=== PATIENT | male | born 1965 | race Caucasian/White ===

== ENCOUNTER 2017-08-30 18:57 | Emergency (ER) | payer OTHER ==
[2017-08-30] MEDS ORDERED: ACETAMINOPHEN 500 MG TAB PO ONE (19:43)
[2017-08-30] MEDS ORDERED: IBUPROFEN 600 MG TAB PO ONE (19:43)
--- NOTE | 2017-08-30 20:15 | EDPHY ---
H & P Stated Complaint: R ankle injury - Personal History Current Tetanus/Diphtheria Vaccine: Yes Current Tetanus Diphtheria and Acellular Pertussis (TDAP): Yes - Medical/Surgical History Hx Asthma: No Hx Chronic Respiratory Disease: No Hx Diabetes: No Hx Cardiac Disease: No Hx Renal Disease: No Hx Cirrhosis: No Hx Alcoholism: No Hx HIV/AIDS: No Hx Splenectomy or Spleen Trauma: No Other PMH: HTN, hiatal hernia - Social History Smoking Status: Never smoked Time Seen by Provider: 08/30/17 19:30 HPI/ROS: Chief complaint: Right ankle injury History of present illness: This is a 52-year-old male who presents to the emergency department for a right ankle injury. He slipped and fell, twisting it. Since then he has had pain and swelling. Difficulty ambulating. No report of open wounds. No abnormal coolness or paresthesias in the foot. No other trauma reported. (Robin Escalante) - Physical Exam Exam: General: Alert, nontoxic Skin: No open wounds to the right lower extremity. Musculoskeletal: Mild edema to the lateral aspect of the ankle. This area is tender to palpation. He is having difficulty moving the ankle. The Achilles is intact. The knee, proximal lower leg and foot are nontender. Vascular: DP and PT pulses 2+. Neurologic: Sensation intact throughout the right leg. (Robin Escalante) Constitutional: Initial Vital Signs Temperature (C) 36.4 C 08/30/17 19:11 Heart Rate 74 08/30/17 19:11 Respiratory Rate 16 08/30/17 19:11 Blood Pressure 138/97 H 08/30/17 19:11 O2 Sat (%) 96 08/30/17 19:11 O2 Delivery Mode Room Air Allergies/Adverse Reactions: No Known Allergies Allergy (Verified 03/13/12 19:04) Home Medications: Medication Instructions Recorded Lisinopril 08/30/17 Medical Decision Making - Diagnostics Imaging: I viewed and interpreted images myself Procedures: Procedure: Splint placement. A posterior short-leg splint was applied. After application of the splint I returned and re-examined the patient. The splint was adequately immobilizing the joint and distal to the splint the patient's circulation and sensation was intact. (Robin Escalante) ED Course/Re-evaluation: Patient seen under the supervision of my secondary supervising physician Dr. Karthik Anna. Patient presents to the emergency department for evaluation of a right ankle injury. X-ray confirms a fracture. This appears to be closed. The right lower extremity is neurovascularly intact. By history and physical exam no evidence of trauma to other parts of the body. The ankle is splinted. Patient is discharged home. He is referred to Orthopedics for recheck. Return precautions are given. (Robin Escalante) I did not see this while he was in the emergency department. However his care was discussed with the PA while the patient was in the department. I agree with treatment plan and management (WilfridoaKrthik Niranjan) Differential Diagnosis: Included but not limited to contusion, sprain or strain, bony fracture, joint dislocation (Robin Escalante) - Data Points Medications Given: Discontinued Medications Acetaminophen (Tylenol) 1,000 mg PO EDNOW ONE Stop: 08/30/17 19:44 Last Admin: 08/30/17 20:00 Dose: 1,000 mg Ibuprofen (Motrin) 600 mg PO EDNOW ONE Stop: 08/30/17 19:44 Last Admin: 08/30/17 20:00 Dose: 600 mg Departure - Departure Disposition: Home, Routine, Self-Care Clinical Impression: Right fibular fracture Qualifiers: Encounter type: initial encounter Fibula location: distal Fracture type: closed Fracture morphology: unspecified fracture morphology Qualified Code(s): S82.831A - Other fracture of upper and lower end of right fibula, initial encounter for closed fracture Condition: Good Instructions: Leg Fracture (ED) Additional Instructions: Follow-up with orthopedics for continued evaluation and care Use ibuprofen 600 mg every 6 hr for pain In addition you can use Tylenol 650 mg every 6 hr for pain Ice the injury, 20 min on, at least 3 times daily for the next 3 days Elevate the injury as much as possible If symptoms worsen or new symptoms develop return to the emergency room for recheck Referrals: Kolton Perkins MD [Primary Care Provider] - As per Instructions Shan Faye MD [Medical Doctor] - As per Instructions
[2017-08-30 20:35] VITALS: BP 142/96
== END 2017-08-30 20:34 | disposition home or self-care (01) ==
DX: S82.831A Other fracture of upper and lower end of right fibula, initial encounter for closed fracture (principal); I10 Essential (primary) hypertension; W01.0XXA Fall on same level from slipping, tripping and stumbling without subsequent striking against object, initial encounter; Y99.8 Other external cause status

== ENCOUNTER 2017-12-24 05:33 | Observation (INO) | payer OTHER ==
[2017-12-24] MEDS ORDERED: LIDOCAINE 1% 2 ML INJ ID PRN (05:46)
[2017-12-24] MEDS ORDERED: ceFAZolin 2 GM/DEXTROSE 100 ML IV ONE (05:46)
[2017-12-24] MEDS ORDERED: LR 1,000 ML IV ONE (05:46)
[2017-12-24] MEDS ORDERED: MIDAZOLAM 2 MG/2 ML VIAL IVP ONE (06:55)
[2017-12-24] MEDS ORDERED: BUPIVACAINE 0.5% 30 ML SDV ONE (06:56)
--- NOTE | 2017-12-24 06:58 | PDANEPAE ---
ANE History of Present Illness hiatal hernia, here for rita, robot assist ANE Past Medical History - Cardiovascular History Hx Hypertension: Yes Hx Arrhythmias: No Hx Chest Pain: No Hx Coronary Artery / Peripheral Vascular Disease: No Hx CHF / Valvular Disease: No Hx Palpitations: No - Pulmonary History Hx COPD: No Hx Asthma/Reactive Airway Disease: No Hx Recent Upper Respiratory Infection: No Hx Oxygen in Use at Home: No Hx Sleep Apnea: No Sleep Apnea Screening Result - Last Documented: Negative - Neurologic History Hx Cerebrovascular Accident: No Hx Seizures: No Hx Dementia: No - Endocrine History Hx Diabetes: No - Renal History Hx Renal Disorders: No - Liver History Hx Hepatic Disorders: No - Neurological & Psychiatric Hx Hx Neurological and Psychiatric Disorders: No - Cancer History Hx Cancer: No - Congenital Disorder History Hx Congenital Disorders: No - GI History Hx Gastrointestinal Disorders: Yes Gastrointestinal History Comment: GERD - Other Health History Other Health History: reading glasses - Chronic Pain History Chronic Pain: No - Surgical History Prior Surgeries: knee scopes. hardware removal left knee, 11/2017. wrist repair ANE Review of Systems Review of Systems: - Exercise capacity METS (RN): 5 METS ANE Patient History - Allergies Allergies/Adverse Reactions: No Known Allergies Allergy (Verified 12/13/17 16:37) - Home Medications Home Medications: Lisinopril [Zestril 40 mg (*)] 40 mg PO DAILY 08/30/17 [Last Taken 12/24/17 05: 00] - NPO status NPO Since - Liquids (Date): 12/23/17 NPO Since - Liquids (Time): 16:00 NPO Since - Solids (Date): 12/24/17 NPO Since - Solids (Time): 01:00 - Smoking Hx Smoking Status: Never smoked - Family Anes Hx Family Hx Anesthesia Complications: none ANE Labs/Vital Signs - Vital Signs Blood Pressure: 120/81 Heart Rate: 91 Respiratory Rate: 16 O2 Sat (%): 96 Height: 198.12 cm Weight: 127.006 kg ANE Physical Exam - Airway Neck exam: FROM, increased neck circumference Mallampati Score: Class 3 Mouth exam: normal dental/mouth exam - Pulmonary Pulmonary: no respiratory distress - Cardiovascular Cardiovascular: regular rate and rhythym - ASA Status ASA Status: II (Has had recent L shoulder surgery, L knee surgery and R ankle surgery) ANE Anesthesia Plan Anesthesia Plan: general endotracheal anesthesia Lines/Monitors: additional IV
[2017-12-24] MEDS ORDERED: LIDOCAINE HCL 160 MG/4 ML LTA KIT TP ONE (07:03)
[2017-12-24] MEDS ORDERED: LIDOCAINE 2% 100 MG/5 ML SYR ONE (07:03)
[2017-12-24] MEDS ORDERED: PROPOFOL 200 MG/20 ML VIAL ONE (07:03)
[2017-12-24] MEDS ORDERED: ONDANSETRON 4 MG/2 ML VIAL ONE (07:03)
[2017-12-24] MEDS ORDERED: fentaNYL 250 MCG/5 ML INJ ONE (07:03)
[2017-12-24] MEDS ORDERED: ROCURONIUM 100 MG/10 ML VIAL ONE (07:03)
[2017-12-24] MEDS ORDERED: DEXAMETHASONE 4 MG/ML VIAL ONE (07:03)
--- NOTE | 2017-12-24 07:07 | PDGENHP ---
History and Physical - Chief Complaint GERD - History of Present Illness 52yo M, longstanding GERD with eructation. Has had EGD which has proved some esophagitis, and confirmed hiatal hernia. History Information - Allergies/Home Medication List Allergies/Adverse Reactions: No Known Allergies Allergy (Verified 12/13/17 16:37) Home Medications: Lisinopril [Zestril 40 mg (*)] 40 mg PO DAILY 08/30/17 [Last Taken 12/24/17 05: 00] I have personally reviewed and updated: medical history, social history, surgical history - Social History Smoking Status: Never smoked Review of Systems Review of Systems: ROS: 10pt was reviewed & negative except for what was stated in HPI & below Physical Exam Physical Exam: Temp Pulse Resp BP Pulse Ox 91 16 120/81 H 96 12/24/17 06:58 12/24/17 06:58 12/24/17 06:58 12/24/17 06:58 Constitutional: no apparent distress, appears nourished, not in pain Eyes: PERRL, anicteric sclera, EOMI Ears, Nose, Mouth, Throat: moist mucous membranes, hearing normal, ears appear normal, no oral mucosal ulcers Cardiovascular: regular rate and rhythym, no murmur, rub, or gallop, No edema Respiratory: no respiratory distress, no rales or rhonchi, clear to auscultation Gastrointestinal: normoactive bowel sounds, soft, non-tender abdomen, no palpable masses Genitourinary: no bladder fullness, no bladder tenderness Skin: warm, normal color, no rashes or abrasions, no fluctuance, no induration, No mottled Musculoskeletal: full muscle strength, no muscle tenderness, normal joint ROM, no joint effusions Psychiatric: interacting appropriately, not anxious, not encephalopathic, thought process linear Lymph, Heme, Immunologic: no cervical LAD, no supraclavicular LAD Assessment & Plan Assessment: 52yo M c longstanding GERD c hiatal hernia Plan: to OR for hiatal hernia repair and rita. HELIO dsicussed
[2017-12-24] MEDS ORDERED: PHENYLEPHRINE HCL 100 MCG/ML SYR ONE (09:31)
[2017-12-24] MEDS ORDERED: GLYCOPYRROLATE 0.2 MG/1 ML VIAL ONE (09:31)
[2017-12-24] MEDS ORDERED: HYDROmorphONE/DILAUDID 2 MG/ML INJ ONE (09:32)
[2017-12-24] MEDS ORDERED: ALBUTEROL 3 ML DEYVIAL IH PRN (10:03)
[2017-12-24] MEDS ORDERED: DIAZEPAM 5 MG/ML 1 ML SYR IVP PRN (10:03)
[2017-12-24] MEDS ORDERED: NALOXONE HCL 0.4 MG/ML INJ IVP PRN (10:03)
[2017-12-24] MEDS ORDERED: oxyCODONE IR 5 MG TAB PO PRN ×2 (10:03→11:22)
[2017-12-24] MEDS ORDERED: fentaNYL 100 MCG/2 ML INJ IVP PRN (10:03)
[2017-12-24] MEDS ORDERED: HYDROmorphONE/DILAUDID 2 MG/ML INJ IVP PRN (10:03)
[2017-12-24] MEDS ORDERED: PROMETHAZINE HCL 25 MG/ML INJ IVP PRN (10:03)
[2017-12-24] MEDS ORDERED: MEPERIDINE 25 MG/0.5 ML AMP IVP PRN (10:03)
[2017-12-24] MEDS ORDERED: ONDANSETRON 4 MG/2 ML VIAL IVP PRN (11:22)
--- NOTE | 2017-12-24 11:22 | POSTOPPROG ---
Post Op Note Date of Operation: 12/24/17 Surgeon: Jorge Cabrera Frame Cleaner: RO Haley Anesthesiologist: Diogo Anesthesia: GET(General Endotracheal) Pre-op Diagnosis: Hiatal hernia, GERD Post-op Diagnosis: same Procedure: Robotic hiatal hernia repair c Sima Findings: mod sized hiatal, Sima. Inf/Abcess present in the surg proc area at time of surgery?: No EBL: 50-100
[2017-12-24] MEDS ORDERED: D5W 1/2 NS W/ 20 KCl/L 1,000 ML IV SCH (11:30)
[2017-12-24] MEDS ORDERED: fentaNYL 100 MCG/2 ML INJ ONE (12:00)
--- NOTE | 2017-12-24 14:41 | POSTANESTH ---
Post Anesthetic Evaluation Cardiovascular Status: Normal, Stable Respiratory Status: Normal, Stable Level of Consciousness/Mental Status: Can Participate in Eval Pain Control: Adequate, Prn Tx Ordered Nausea/Vomiting Control: Adequate, Prn Tx Ordered Complications Possibly Related to Anesthesia: None Noted (seen briefly for exam prior to transfer out to floor, doing well and without complaint. All criteria met prior to DC)
[2017-12-24] MEDS: HYDROmorphONE/DILAUDID 1 MG/ML INJ IVP PRN ×2 (19:57→22:27)
--- NOTE | 2017-12-24 20:01 | GOP ---
DATE OF OPERATION: 12/24/2017 SURGEON: Jorge Cabrera MD BEEF CATTLE GRAZIER: RO [employer]. ANESTHESIA: General endotracheal. ANESTHESIOLOGIST: Dr. Lind. PREOPERATIVE DIAGNOSIS: Hiatal hernia with gastroesophageal reflux. POSTOPERATIVE DIAGNOSIS: Hiatal hernia with gastroesophageal reflux. PROCEDURE PERFORMED: 1. Robotic-assisted laparoscopic hiatal hernia repair. 2. Robotic-assisted laparoscopic Sima fundoplication. FINDINGS: Moderate-size hiatal hernia successfully reduced. Crura reapproximated with multiple interrupted 2-0 Ethibond sutures. Floppy Sima fundoplication performed. SPECIMENS: None. ESTIMATED BLOOD LOSS: 50 cc. DESCRIPTION OF PROCEDURE: The patient was greeted in the preoperative suite. Once again, risks, benefits, and alternatives were discussed. Consent was signed. He was then brought back to the operative suite, placed on the OR table in supine position. After all anesthesia machines including SCDs were on and functioning, [employer] time-out was performed. After successful induction of general anesthesia, the patient's abdomen was prepped and draped in typical sterile fashion. I entered the abdomen via a supraumbilical cutdown, through which the Veress needle was passed. I achieved pneumoperitoneum to 15 mmHg which was well tolerated by the patient. I then inserted a 12 mm Visiport through this. I then inserted multiple additional 8 mm trocars, 1 in the left upper, 2 in the right upper, and 1 on the left lower quadrant, all 8 mm, all under direct visualization. Once this was done, the patient was then placed in Trendelenburg position and the robot was successfully brought in and docked. Once successfully in the abdomen, I turned my attention toward the left upper quadrant. The liver was successfully retracted out of the way. I turned my attention toward the pars flaccida initially and the lesser omentum was divided all the way up to the right bogdan. I successfully dissected the right bogdan out with combination of blunt dissection and Harmonic Scalpel. I carried the dissection inferiorly. I then entered the hiatus and successfully removed the hernia sac from the chest into the abdomen. I did this circumferentially. I turned my attention toward the left bogdan, which was then skeletonized in the same fashion. After full skeletonization and dissection, I had approximately 2 additional inches of esophagus in the abdominal cavity under no tension and the posterior esophageal space was completely dissected out for future fundoplication. I then turned my attention toward mobilizing the short gastrics, starting at the inferior pole of the spleen. Using the Harmonic Scalpel, I successfully took down hemostatically all the short gastrics, using the Harmonic Scalpel to the fundus of the stomach. After this was done, I turned my attention back toward the crura. The defect was moderate but not large. I repaired it with 3 interrupted 2-0 Ethibond stitches, noting good reapproximation under minimal tension. I could fit my dissecting instruments within the hiatus with minimal to no tension. I turned my attention then toward the [place] fundoplication. Again, the fundus of the stomach was successfully mobilized. The greater curve was then brought through the esophageal space posteriorly. A shoeshine technique was done to ensure appropriate wrap. A short, floppy 3 cm Sima fundoplication was performed with multiple 2-0 Ethibond sutures. The esophagus was incorporated into the superior stitch to help prevent slipping. I could pass my dissecting instrument beneath the fundoplication with ease. I did anchor the fundoplication to the right bogdan with an additional interrupted 2-0 Ethibond stitch. I then irrigated the left upper quadrant. I removed my liver retractor. I found no other significant pathology. The instruments were then removed. Pneumoperitoneum was removed. All port sites were then closed. My 12 mm port site was closed with an interrupted 0 Vicryl stitch, noting excellent fascial reapproximation. The skin was then closed with Monocryl, over which Dermabond was placed. The patient was then extubated in the operative suite and taken to the PACU in satisfactory condition. DRAINS: None. COUNTS: All counts were reported as correct x2. /[id number]/MODL MTDD
[2017-12-25] MEDS: HYDROmorphONE/DILAUDID 1 MG/ML INJ IVP PRN ×2 (02:37→10:09)
[2017-12-25 07:43] VITALS: BP 107/83
--- NOTE | 2017-12-25 09:54 | ASMTCMCOM ---
CM Note CM Note Notes: Spoke w/RN, pt is independent, will dc home w/support of when medically stable. CM available for any changes. DC Plan: Independent Date Signed: 12/25/2017 09:54 AM Electronically Signed By:Alayna Penny RN
== END 2017-12-25 11:09 | disposition home or self-care (01) ==
LOC: F3E 05:33
PROVIDERS: ADMIT Surgery; ATTEND Surgery
PROC: 0DV44ZZ Restriction of Esophagogastric Junction, Percutaneous Endoscopic Approach (ICD-10-PCS; principal; 2017-12-24 07:15)
PROC: 0BQT4ZZ Repair Diaphragm, Percutaneous Endoscopic Approach (ICD-10-PCS; principal; 2017-12-24 07:15)
DX: K44.9 Diaphragmatic hernia without obstruction or gangrene (principal); K21.9 Gastro-esophageal reflux disease without esophagitis; K20.9 Esophagitis, unspecified
CPT/HCPCS: 43280; G0378; J0690; J1100; J1170; J2001; J2250; J2370; J2405; J2704; J3010

== ENCOUNTER 2017-12-26 22:30 | Observation (INO) | payer OTHER ==
--- NOTE | 2017-12-26 22:53 | EDPHY ---
H & P Time Seen by Provider: 12/26/17 22:48 HPI/ROS: CHIEF COMPLAINT: Chest pressure, shortness of breath and diaphoresis HISTORY OF PRESENT ILLNESS: Patient is a 52-year-old male with history of hiatal hernia and esophagitis underwent repair of a hiatal hernia yesterday. It review of the operative report reveals no complications. He was discharged home and this morning reports feeling a pressure-like sensation in his chest and feeling cold and sweaty. Does report pain in his chest with deep respiration. He has no history of pulmonary embolism. He has noted no fever or hemoptysis or cough. He has noticed no leg swelling. He has no prior cardiac history including no history of dyslipidemia, smoking, diabetes. He does have a history of hypertension. REVIEW OF SYSTEMS: Constitutional: No fever, no chills. Eyes: No discharge. ENT: No sore throat. Cardiovascular: + chest pain, no palpitations. Respiratory: No cough, + shortness of breath. Gastrointestinal: No abdominal pain, no vomiting. Genitourinary: No hematuria. Musculoskeletal: No back pain. Skin: No rashes. Neurological: No headache. Smoking Status: Never smoked Physical Exam: General Appearance: Alert and no distress. Eyes: Pupils equal and round no injection. Respiratory: Chest is nontender, lungs are clear to auscultation. Cardiac: regular rate and rhythm. Gastrointestinal: Abdomen is soft and nontender, no masses, bowel sounds normal. Musculoskeletal: Neck is supple and nontender. Extremities have full range of motion and are nontender. Skin: No rashes or lesions. Constitutional: Initial Vital Signs Temperature (C) 36.7 C 12/26/17 22:36 Heart Rate 86 12/26/17 22:36 Respiratory Rate 20 12/26/17 22:36 Blood Pressure 131/83 H 12/26/17 22:36 O2 Sat (%) 92 12/26/17 22:36 O2 Delivery Mode Room Air O2 (L/minute) 2 Allergies/Adverse Reactions: zolpidem [From Ambien] Allergy (Verified 12/27/17 07:48) Other-Enter Comments Home Medications: Medication Instructions Recorded Lisinopril [Zestril 40 mg (*)] 40 mg PO DAILY 08/30/17 oxyCODONE IR [Oxycodone Ir (*)] 5 - 10 mg PO Q4HRS PRN #20 tab 10/03/18 Acetaminophen [Tylenol 325mg (*)] 650 mg PO Q4HRS PRN tab 12/27/17 LORazepam [Ativan (*)] 1 mg PO Q4HRS PRN #20 tab 12/27/17 Medical Decision Making ED Course/Re-evaluation: 52-year-old male here with chest pressure and shortness of breath starting this morning. He is diaphoretic on arrival and 88%. EKG shows no ischemic changes and troponin is negative. CTA was ordered which showed bilateral atelectasis but no dissection or pulmonary embolism. The patient is obese and has a history of hypertension so is Low to moderate risk for ACS. Additionally he has hypoxic. He He will be admitted for further monitoring of his hypoxia and pulmonary toilet and cardiac rule out. - Data Points Laboratory Results: Laboratory Results 12/26/17 23:15 12/26/17 23:15 Medications Given: Discontinued Medications Acetaminophen (Tylenol) 650 mg PO Q4HRS PRN PRN Reason: Pain, Mild/Fever, Can Take PO Stop: 06/25/18 01:40 Last Admin: 12/27/17 15:08 Dose: 650 mg Albuterol/Ipratropium (Duoneb) 3 ml IH EDNOW ONE Stop: 12/27/17 00:10 Last Admin: 12/27/17 00:25 Dose: 3 ml Lisinopril (Zestril) 40 mg PO DAILY JEN Stop: 06/25/18 09:29 Last Admin: 12/27/17 09:25 Dose: 40 mg Lorazepam (Ativan) 1 mg PO Q4HRS PRN PRN Reason: Anxiety, Able to Take PO Stop: 06/25/18 10:30 Last Admin: 12/27/17 16:28 Dose: 1 mg Point of Care Test Results: Chemistry 12/26/17 23:24 POC Troponin I 0.00 ng/mL ng/mL (0.00-0.08) Departure - Departure Disposition: [facility] Inpatient Acute Condition: Good
[2017-12-26] MEDS ORDERED: IOPAMIDOL (ISOVUE 370) 100 ML BTL IV ONE (23:16)
[2017-12-26 23:22] LABS: PLATELET COUNT 208 10^3/uL (150-400)
[2017-12-27] MEDS ORDERED: IPRATROPIUM/ALBUTEROL 3 ML DEYVIAL IH ONE (00:09)
[2017-12-27] MEDS ORDERED: oxyCODONE IR 5 MG TAB PO PRN (01:41)
[2017-12-27] MEDS ORDERED: ONDANSETRON 4 MG/2 ML VIAL IVP PRN (01:41)
[2017-12-27] MEDS ORDERED: ALPRAZolam 1 MG TAB PO PRN (01:53)
[2017-12-27] MEDS ORDERED: MELATONIN 3 MG TAB PO PRN (02:57)
[2017-12-27] MEDS ORDERED: diphenhydrAMINE 25 MG CAP PO PRN (02:58)
--- NOTE | 2017-12-27 04:01 | GHP ---
DATE OF ADMISSION: 12/27/2017 SOURCE: Patient provides history, appears reliable. EMR was reviewed and case discussed with ED pro vider. CHIEF COMPLAINT: Shortness of breath, anxiety. HISTORY OF PRESENT ILLNESS: This is a very pleasant 52-year-old gentleman with a past medical histor y significant for hypertension, GERD, esophagitis, and a recent hiatal hernia on 12/24/2017, with Dr. Cabrera. The patient had a lap Sima fundoplication and did well postoperatively. He had been utilizing his incentive spirometer at home regularly with volumes up to 3000. This evening, patient reports that he had developed acute shortness of breath, felt sweaty and clammy, did not have any yanely sea or chest pain or chest tightness. He did report some increased high abdominal pain with inspirat ion. Patient denies any cough. No fevers but had been flushed and felt chilly just with this episod e. He became significantly anxious when he felt like he could not breathe. Patient presented to the ED and upon triage evaluation was noted to be 88% on room air. The patient tolerated his recent pro cedure quite well. Denies any chest pain. Did not have a preceding stress test. REVIEW OF SYSTEMS: Negative except as noted above. ALLERGIES: No known drug allergies. HOME MEDICATIONS: Oxy IR, lisinopril 40 mg p.o. daily. PAST MEDICAL HISTORY: Significant for hypertension, hiatal hernia, GERD and esophagitis. PAST SURGICAL HISTORY: 1. 12/24/2017, patient underwent lap Sima fundoplication. He also recently underwent a right shou lder arthroscopy as well as a right ankle surgery for which he still has sutures in place. 2. Left knee surgery to remove hardware. FAMILY HISTORY: Negative for CAD or lung disease. SOCIAL HISTORY: Patient is , lives with his . He does not smoke, drink, or do drugs. CODE STATUS: DNR, DNI. Patient does not have advance directives in place but reports that his is aware of his wishes and she is at bedside and agrees. PHYSICAL EXAMINATION: VITAL SIGNS: Upon arrival to the ED, blood pressure is 131/83, heart rate 86, respiratory rate 20, O2 saturation 92% on room air with temperature 36.7. Upon triage, was noted to be 88% on room air. Repeat vitals: Blood pressure 115/76, heart rate is 88, respiratory rate 16, O 2 saturation 92% on 2 L by nasal cannula. A room air challenge repeated in the ED. The patient's O2 saturation dropped to 89% with exertion. GENERAL: No acute distress. Pleasant adult gentleman is sitting up in the gurney. His is at bedside. HEAD: Normocephalic, atraumatic. EYES: Extraoc ular muscles are intact. Pupils equal, round, react to light bilaterally and symmetric. No scleral icterus or conjunctival injection. ENT: Mucous membranes appear moist. No oropharyngeal erythema o r exudates. NECK: Supple. Trachea midline. CV: Regular rate and rhythm. No murmurs, rubs, or ga llops appreciated. RESPIRATORY: Lungs are clear to auscultation bilaterally, slightly diminished at the bases bilaterally. No wheezes, rales, or rhonchi appreciated. ABDOMEN: Mildly distended. Cathleen gical incisions are dry, clean, intact. Slightly hypoactive bowel sounds but present in all quadrant s. : No suprapubic tenderness to palpation. No Quan catheter in place. EXTREMITIES: No cyanos is, clubbing, edema. Patient with 2+ pedal pulses bilaterally and symmetric. NEURO: Grossly nonfoc al. No facial drooping. Moves all extremities. Strength intact. Sits up independently. PSYCH: T hought process, content, and questions are all appropriate. Patient is pleasant and cooperative. He is oriented x3. LABORATORY STUDIES: WBC 10.72, H and H are 14.2 and 41.0, MCV of 86.7, platelet count is 208. No ba nds. Sodium is 131, potassium is 4.1, chloride is 95, CO2 is 25, anion gap 11, BUN is 28, creatinine is 0.9. GFR is greater than 60. Glucose 115, calcium is 9.0. Troponin is negative, POC. IMAGING: EKG reviewed myself. Normal sinus rhythm in the 70s. Patient with some diffuse T-wave fla ttening. No available comparison EKGs for review. The patient without any ST elevations or depressi ons. QTc is 420. ASSESSMENT AND PLAN: A pleasant 52-year-old gentleman with recent laparoscopic Sima for hiatal her ashley repair, presents to the ED with complaints of shortness of breath, chest tightness, diaphoresis, and found to be hypoxic with atelectasis. 1. Dyspnea with noted hypoxia, likely related to patient's atelectasis: Incentive spirometry has be en continued to be encouraged. Supplemental oxygen to maintain saturations greater than 90%. Patien t will have an exertional pulse oximetry completed before discharge. CTA was negative for pulmonary embolism or pneumonia. We will continue to encourage incentive spirometry and mobility. 2. Chest tightness: Patient reports that this is related to his abdominal pain and incisional sites . He denies any history of chest pain or pressure type sensation. He does have a history of hyperte nsion. No family history otherwise. Initial troponin was negative. EKG did show some nonspecific T -wave changes in multiple leads. We will plan to repeat a troponin in the morning as well as an EKG for comparison as none is available in the EMR. 3. Hypoxia: Supplemental oxygen to maintain saturations over 90, as noted above. Again, exertion, pulse oximetry to be completed in the morning. Continue incentive spirometry. 4. Postoperative pain: The patient reports that he is no longer taking the Oxy due to his concerns that it is causing issues with his respiratory status. Tylenol will be available p.r.n. 5. Hyponatremia likely related to some dehydration: Patient is tolerating oral liquids. We have en couraged him to orally hydrate and repeat a BMP in the morning. 6. Gastroesophageal reflux disease: Patient is not currently on any antacids. He is asymptomatic o therwise, status post Sima fundoplication. We will defer a courtesy call to surgical team, Dr. Bernarda helton, patient's primary surgeon, to notify that patient was admitted for hypoxia. 7. Benign essential hypertension: Blood pressures at this time are acceptable. Plan to resume terence ent's lisinopril. 8. Fluid, electrolyte, nutrition: Oral hydration will be encouraged. Electrolytes acceptable excep t for the sodium which we will have the patient replace orally. A clear liquid diet has been continu ed. 9. Prophylaxis: Sequential compression devices, holding anticoagulation. Anticipating a short hosp ital stay and we will encourage early ambulation. 10. Code status: Discussed with the patient with his at bedside. Patient desires to be a do n ot resuscitate, do not intubate. He does not have advance directives in place, but this was discusse d and they report they have paperwork at home. 11. Disposition: Patient admitted to observation status on the PCU floor for closer quality assurance monitor body ing. /[id number]/MODL
--- NOTE | 2017-12-27 05:05 | CPEKG ---
Test Reason : OPEN Blood Pressure : / mmHG Vent. Rate : 076 BPM Atrial Rate : 078 BPM P-R Int : 161 ms QRS Dur : 093 ms QT Int : 373 ms P-R-T Axes : 041 -02 033 degrees QTc Int : 420 ms Sinus rhythm Borderline T wave abnormalities Confirmed by Moises Goss ([id number]) on 12/27/2017 5:05:01 AM Referred By: Confirmed By:Moises Goss
[2017-12-27 06:13] LABS: PLATELET COUNT 185 10^3/uL (150-400)
[2017-12-27] MEDS ORDERED: LISINOPRIL 40 MG TAB PO SCH (09:30)
[2017-12-27] MEDS ORDERED: DIAZEPAM 5 MG TAB PO PRN (10:30)
[2017-12-27] MEDS ORDERED: LORazepam 1 MG TAB PO PRN (10:31)
--- NOTE | 2017-12-27 11:02 | SOAPPROG ---
[facility] Progress Note Assessment/Plan: Assessment: 52yo M s/p Robotic Sima admitted c hypoxia/anxiety - Admission and ED notes reviewed. Appears that he was doing well but that anxiety and splinting caused him to hyperventilate and subsequently become hypoxic. Admitted for workup and Tx - On exam this AM, denies pain, his abdomen is soft and he is tolerating liquids better than on dc. Discussed continuing clears for the time being - Discussed with Ryan, plan will be for cardiac stress to r/o unstable angina. - Patient doing well with aniolytics, will need dc on this in lieu of narcotics - will follow with you Plan: 12/27/17 11:00 Subjective: denies pain, is a little anxious Objective: Vital Signs Temp Pulse Resp BP Pulse Ox 36.8 C 91 19 116/73 94 12/27/17 04:52 12/27/17 04:52 12/27/17 04:52 12/27/17 04:52 12/27/17 04:52 Laboratory Results 12/27/17 06:05 12/27/17 06:05 12/26/17 12/27/17 12/28/17 05:59 05:59 05:59 Intake Total 250 Output Total 600 Balance -350 ICD10 Worksheet Patient Problems: Problems Problem Status Onset Right fibular fracture Acute
[2017-12-27] MEDS: ACETAMINOPHEN 325 MG TAB PO PRN ×2 (11:03→15:08)
[2017-12-27] MEDS ORDERED: REGADENOSON 0.4 MG/5 ML SYR IVP ONE (12:08)
[2017-12-27 13:15] VITALS: BP 115/81
--- NOTE | 2017-12-27 15:39 | ASMTCMCOM ---
CM Note CM Note Notes: Patient admitted for hypoxia and concurrent anxiety. He is s/p robotic Sima. He is on the PCU for workup for unstable angina. Patient is normally independent - lives with his and works. No discharge needs anticipated. Date Signed: 12/27/2017 03:33 PM Electronically Signed By:Christelle Burkett RN
--- NOTE | 2017-12-27 16:53 | PDDCSUM ---
Discharge Summary Discharge Summary: DISCHARGE SUMMARY DATE OF ADMISSION: 12/27/2017 DATE OF DISCHARGE: 12/27/2017 DISCHARGE DIAGNOSES: 1. Acute anxiety attack 2. Acute atelectasis CONSULTATIONS: General surgery PROCEDURES / IMAGING: Nuclear medicine stress test demonstrating no inducible ischemia CHIEF COMPLAINT: Acute shortness of breath, headache, tachycardia SUBJECTIVE: Patient is feeling well at time of discharge, his symptoms have responded to Ativan PHYSICAL EXAM ON DISCHARGE: Systolic blood pressure 110, heart rate 80-90, afebrile overnight, satting 94% on room air, alert awake oriented x3, anxiety easily provoked, response to calming techniques, lungs are clear to auscultation bilaterally with the exception of some inspiratory crackles in left base, no expiratory wheezes, tachycardia condition on exam, tachycardia resolved throughout the exam, bowel sounds are present, abdomen is soft nontender nondistended, no erythema surrounding the surgery site LABS ON DISCHARGE: Serum sodium 135, creatinine 0.9, troponin negative, white blood cell count 9400 , hemoglobin 13.5 HOSPITAL COURSE BY PROBLEM: Patient presented with acute shortness of breath, headache, tachycardia, anxiety , most likely secondary to acute anxiety attack in the setting of symptomatic discomfort from esophageal dilation/irritation status post Sima surgery. The patient has noticed his symptoms to be temporarily associated with increased oral liquid intake, and the symptoms seemed to escalate his anxiety and overall discomfort. CT angiogram ruled out pulmonary embolism, nuclear medicine stress test ruled out obstructive coronary disease, and I witnessed 1 of these events, which was alleviated by calming techniques. I suspect the patient is experiencing discomfort from the lower esophagus with oral intake, and it has been recommended to him to utilize proton pump inhibitor by his general surgeon. The patient has also been prescribed pain medication which she does not want to utilize. The patient is amenable to using Ativan as needed, and a prescription has been provided. He has also been utilizing incentive spirometer vigorously and his inspiratory volume is currently greater than 4 L. He does experience occasional hypoxia secondary to his postsurgical atelectasis , but with deep inspiration ambulation, he is satting greater than 90% on room air. Consequently, he does not require supplemental oxygen. DISCHARGE MEDICATIONS: Please see official discharge medication reconciliation sheet in chart , Ativan as needed 1 mg q.4 hours. DISCHARGE INSTRUCTIONS: Reassess at General surgery Clinic, then follow up with primary care provider.
--- NOTE | 2017-12-27 16:57 | ASDISCHSUM ---
Discharge Information Plan Status:Home with No Needs Medically Cleared to Leave:12/27/2017 Discharge Date:12/27/2017 04:41 PM CM D/C Disposition:Home, Routine, Self-Care ADT D/C Disposition:Home, Routine, Self-Care Projected Discharge Date:12/27/2017 04:41 PM Transportation at D/C:Family Discharge Delay Reason: Follow-Up Date:12/27/2017 04:41 PM Discharge Slot: Final Diagnosis: Placement Information Patient Contact Information Contact Name:SIMIN Relationship: Address:[address] [place] [address] Work Phone: City:[place] Alternate Phone: [facility]/Zip Code:[place] [address] Email: Financial Information Financial Class:[facility] Primary Plan Desc:[facility] Primary Plan Number:[id number] Secondary Plan Desc: Secondary Plan Number: Assessment Information LACE LACE Length of stay for Answers: Less than 1 day current admission Acuity / Level of Answers: No Care: Did the patient have an inpatient admission? Comorbidities - select Answers: Other Notes: HTN, hiatal all that apply hernia, GERD, esophagit is # of Emergency department Answers: 1-2 visits in the last 6 months Social determinants Answers: Mental health diagnosis (anxiety, depression, pers onality disorders, etc.) Score: 5 Date Signed: 12/27/2017 04:56 PM Electronically Signed By:Carole Camp RN [facility] CM Progress Note CM Note CM Note Notes: Patient admitted for hypoxia and concurrent anxiety. He is s/p robotic Sima. He is on the PCU for workup for unstable angina. Patient is normally independent - lives with his and works. No discharge needs anticipated. Date Signed: 12/27/2017 03:33 PM Electronically Signed By:Christelle Burkett RN Intervention Information
--- NOTE | 2017-12-27 17:21 | CPEKG ---
Test Reason : OPEN Blood Pressure : / mmHG Vent. Rate : 076 BPM Atrial Rate : 075 BPM P-R Int : 166 ms QRS Dur : 101 ms QT Int : 378 ms P-R-T Axes : 046 -04 033 degrees QTc Int : 426 ms Sinus rhythm Borderline T wave abnormalities Confirmed by Kira Cabral ([id number]) on 12/27/2017 5:21:36 PM Referred By: Confirmed By:Kira Cabral
--- NOTE | 2017-12-27 20:56 | CPR ---
DATE OF PROCEDURE: 12/27/2017 REASON FOR TEST: Chest pain and shortness of breath. Resting EKG shows a sinus rhythm with a rate of 89. Inferior Q-waves are noted. Resting blood pressu re is 120/80, resting heart rate 89, oxygen saturation 96. He is asymptomatic prior to injection. STRESS PORTION: Lexiscan was injected, followed by saline flush. Cardiolite was then injected, foll owed by saline flush. He did feel mild shortness of breath and some stomach cramping after injection . Peak heart rate was 107, blood pressure 120/84, oxygen saturation 92%. No EKG changes during stre ss portion. RECOVERY: He did spontaneously recover with no EKG changes. Recovery blood pressure 122/80, heart r ate 88, oxygen saturation 94%. His symptoms did dissipate during the recovery period. At this time, he currently is stable for nuclear imaging. /[id number]/MODL
== END 2017-12-27 16:41 | disposition home or self-care (01) ==
LOC: F2W 12-27 01:57
PROVIDERS: ADMIT Family Medicine; ATTEND Internal Medicine
DX: F41.0 Panic disorder [episodic paroxysmal anxiety] (principal); J98.11 Atelectasis; E87.1 Hypo-osmolality and hyponatremia; R51 Headache; R09.02 Hypoxemia; G89.18 Other acute postprocedural pain; I10 Essential (primary) hypertension; K21.0 Gastro-esophageal reflux disease with esophagitis; Z98.890 Other specified postprocedural states; Z66 Do not resuscitate
CPT/HCPCS: 71275; 78452; 93005; 93017; 99285; A9500; G0378; 84484-PO; J2785; Q9967